=== PATIENT | male | born 1935 | race Caucasian/White ===

== ENCOUNTER → 2019-01-17 | Outpatient (CLI) | payer MEDICARE, OTHER ==
[~2019-01-17] MED LIST: ACET325 PO; ALBU90OI INH; AMLO10 PO; ATOR10 PO; BUME1 PO; CLOP75 PO; CRUTCH2 USE; DOCU100 PO; FISH1000 PO; FLUT44OIA INH; HYDACE10B PO; HYDCHL12.5 PO; MICROZIDE12.5 M1 PO; MULVITMIND PO; NAPR500 PO; NEBI10 PO; OSEL75CA PO; VITS/SUPPS; Zithromax250 MG PO
[2019-01-23 17:07] LABS: A/G RATIO 0.9 (0.7-1.7); ALBUMIN 3.7 g/dL (2.9-4.4); ALPHA-1-GLOBULIN 0.3 g/dL (0.0-0.4); BETA GLOBULIN 0.9 g/dL (0.7-1.3); GAMMA GLOBULIN 1.8 g/dL (0.4-1.8); GLOBULIN, TOTAL 3.9 g/dL (2.2-3.9); IMMUNOGLOBULIN A, QN, SERUM 123 mg/dL (61-437); IMMUNOGLOBULIN G, QN, SERUM 1183 mg/dL (700-1600); IMMUNOGLOBULIN M, QN, SERUM 1382 mg/dL (15-143); M-SPIKE 1.2 g/dL (Not Observed); PROTEIN, TOTAL, SERUM 7.6 g/dL (6.0-8.5)
== END | disposition home or self-care (01) ==
LOC: LAB 12:13 → LAB SHORT 12:13 → EDSTATUS 12:22
PROVIDERS: Internal Medicine Hematology & Oncology
DX: C83.00 Small cell B-cell lymphoma, unspecified site (principal); D51.8 Other vitamin B12 deficiency anemias; D47.2 Monoclonal gammopathy; D72.819 Decreased white blood cell count, unspecified
CPT/HCPCS: 82607; 82746; 84165

== ENCOUNTER → 2020-07-01 | Outpatient (CLI) | payer MEDICARE, OTHER ==
[~2020-07-01] MED LIST changes: +Bumetanide2 MG PO; +FURO20 PO; +Lisinopril2.5 MG PO; +MULTI VITAMIN1 EACH PO; -MULVITMIND PO; +POTCHL20ER PO
[2020-07-01 19:43] LABS: Albumin, Blood 3.4 g/dL (3.4-5.0); Albumin/Globulin Ratio 0.9 (0.8-1.8); Bilirubin, Total 0.4 mg/dL (0.1-1.0); Bun/Creatinine Ratio 15.8 (12.0-20.0); Calcium, Blood 8.9 mg/dL (8.5-10.1); Creatinine, Blood 1.77 mg/dL (0.60-1.20); Globulin, Blood 3.8 g/dL (2.2-4.0); Phosphorus, Blood 3.9 mg/dL (2.5-4.9); Potassium, Blood 4.7 mmol/L (3.5-5.5); Total Protein, Blood 7.2 g/dL (6.4-8.2)
[2020-07-08 15:08] LABS: A/G RATIO 0.9 (0.7-1.7); ALBUMIN 3.3 g/dL (2.9-4.4); ALPHA-1-GLOBULIN 0.3 g/dL (0.0-0.4); ALPHA-2-GLOBULIN 0.9 g/dL (0.4-1.0); BETA GLOBULIN 0.8 g/dL (0.7-1.3); IMMUNOGLOBULIN A, QN, SERUM 124 mg/dL (61-437); IMMUNOGLOBULIN G, QN, SERUM 1008 mg/dL (603-1613); IMMUNOGLOBULIN M, QN, SERUM 1235 mg/dL (15-143); M-SPIKE 1.4 g/dL (Not Observed); PROTEIN, TOTAL, SERUM 7.3 g/dL (6.0-8.5)
== END | disposition home or self-care (01) ==
LOC: PLD 11:25 → LAB SHORT 11:25
PROVIDERS: Internal Medicine Hematology & Oncology
DX: C83.00 Small cell B-cell lymphoma, unspecified site (principal); D47.2 Monoclonal gammopathy; N18.32 Chronic kidney disease, stage 3b
CPT/HCPCS: 80053; 82784; 84100; 84165; 86334

== ENCOUNTER → 2020-12-30 | Outpatient (CLI) | payer MEDICARE, OTHER ==
[2020-12-30 20:19] LABS: Albumin, Blood 3.4 g/dL (3.4-5.0); Albumin/Globulin Ratio 0.8 (0.8-1.8); Bilirubin, Total 0.5 mg/dL (0.1-1.0); Bun/Creatinine Ratio 15.2 (12.0-20.0); Calcium, Blood 9.1 mg/dL (8.5-10.1); Creatinine, Blood 1.64 mg/dL (0.60-1.20); Globulin, Blood 4.1 g/dL (2.2-4.0); Phosphorus, Blood 3.9 mg/dL (2.5-4.9); Total Protein, Blood 7.5 g/dL (6.4-8.2)
[2021-01-03 14:08] LABS: A/G RATIO 0.9 (0.7-1.7); ALBUMIN 3.4 g/dL (2.9-4.4); ALPHA-1-GLOBULIN 0.2 g/dL (0.0-0.4); BETA GLOBULIN 0.8 g/dL (0.7-1.3); GAMMA GLOBULIN 1.8 g/dL (0.4-1.8); GLOBULIN, TOTAL 3.8 g/dL (2.2-3.9); IMMUNOGLOBULIN A, QN, SERUM 145 mg/dL (61-437); IMMUNOGLOBULIN G, QN, SERUM 1049 mg/dL (603-1613); IMMUNOGLOBULIN M, QN, SERUM 1278 mg/dL (15-143); M-SPIKE 1.2 g/dL (Not Observed); PROTEIN, TOTAL, SERUM 7.2 g/dL (6.0-8.5)
== END | disposition home or self-care (01) ==
LOC: LAB SHORT 18:04 → LAB 18:04
PROVIDERS: Internal Medicine Hematology & Oncology
DX: C83.00 Small cell B-cell lymphoma, unspecified site (principal)
CPT/HCPCS: 80053; 82784; 84100; 84165; 86334